=== PATIENT | female | born 1935 | race Caucasian/White ===

== ENCOUNTER 2024-01-30 21:13 | Inpatient (IN) | payer MEDICARE, BC ==
[~2024-01-30] VITALS: Ht 157.5 cm; Wt 72.1 kg
[2024-01-30] MEDS ORDERED: METO50TA16 PO (21:51)
[2024-01-30] MEDS ORDERED: LEVO125T PO (21:51)
[2024-01-30] MEDS ORDERED: ZOLP5TAB2 PO (21:51)
[2024-01-30] MEDS ORDERED: SERT100T PO (21:51)
[2024-01-30] MEDS ORDERED: ASPI81TA31 PO (21:51)
[2024-01-30] MEDS ORDERED: CARB1TAB21 PO (21:51)
[2024-01-30] MEDS ORDERED: FOLI1TAB27 PO (21:51)
[2024-01-30] MEDS ORDERED: AMLO10TA59 PO (21:51)
[2024-01-30] MEDS ORDERED: MELA3CAP2 PO (21:51)
[2024-01-30] MEDS ORDERED: CHOL100045 PO (21:51)
[2024-01-30 22:05] LABS: BASOPHILS # (AUTO) 0.1 K/UL (0.0-0.2); BASOPHILS % (AUTO) 0.7 % (0.0-2.0); EOSINOPHILS % (AUTO) 0.2 % (0.0-7.0); HEMATOCRIT 35.9 % (31.2-41.9); HEMOGLOBIN 11.8 g/dL (10.9-14.3); LYMPHOCYTES # (AUTO) 1.2 K/uL (0.8-4.8); LYMPHOCYTES % (AUTO) 8.6 % (20.5-51.5); MEAN CORPUSCULAR HEMOGLOBIN 28.6 uug (24.7-32.8); MEAN CORPUSCULAR HGB CONC 33 g/dL (32.3-35.6); MEAN CORPUSCULAR VOLUME 86.9 fL (75.5-95.3); MONOCYTES # (AUTO) 1.8 K/uL (0.1-1.30); MONOCYTES % (AUTO) 12.5 % (0.0-11.0); PLATELET COUNT (AUTO) 184 K/uL (179-408); RED BLOOD CELL COUNT(AUTO) 4.13 MIL/uL (3.63-4.92); RED CELL DISTRIBUTION WIDTH 13.6 % (12.3-17.7); WHITE BLOOD COUNT (AUTO) 14.1 K/uL (3.8-11.8)
[2024-01-30 22:06] LABS: DIFFERENTIAL COMMENT 1
[2024-01-30 22:14] LABS: CALCIUM 8.9 mg/dL (8.5-10.1); CARBON DIOXIDE 28 mmol/L (21-32); CHLORIDE 98 mmol/L (98-107); CREATININE 1.1 mg/dL (0.6-1.3); GLUCOSE 109 mg/dL (74-106); POTASSIUM 4.5 mmol/L (3.5-5.1); SODIUM SERUM 135 mmol/L (136-145); UREA NITROGEN, BLOOD 21 mg/dL (7-18)
[2024-01-30 22:27] LABS: ALANINE AMINOTRANSFERASE 11 U/L (14-59); ALBUMIN 3.6 g/dL (3.4-5.0); ALKALINE PHOSPHATASE 63 U/L (50-136); ASPARTATE AMINOTRANSFERASE 16 U/L (15-37); BILIRUBIN,DIRECT 0.2 mg/dL (0.0-0.2); BILIRUBIN,TOTAL 0.7 mg/dL (0.2-1.0); NT-PRO BNP 4254 pg/mL (0-125); TOTAL PROTEIN, SERUM 7.3 g/dL (6.4-8.2)
[2024-01-30] MEDS: levoFLOXacin 750 MG/D5W 150 ML PIGGYBACK IV ONE (23:00)
[2024-01-30] MEDS ORDERED: D5W IV ONE (23:15)
[2024-01-30] MEDS ORDERED: LEVOFLOXACIN 250 MG IV ONE (23:15)
[2024-01-31] VITALS (7 sets, daily range): BP systolic 117–157; BP diastolic 33–64; TEMP 97.4–98.4; O2SAT 90–96
[2024-01-31] MEDS ORDERED: REMEDY ESSENTIAL ZINC PASTE 113 GM TP PRN (00:15)
[2024-01-31] MEDS ORDERED: ONDANSETRON 4 MG/2 ML VIAL IV PRN (00:15)
[2024-01-31] MEDS ORDERED: ALBUTEROL SULFATE 2.5 MG/3 ML NEBU NEB PRN (00:15)
[2024-01-31] MEDS ORDERED: MAGNESIUM HYDROXIDE 30 ML LIQUID UDC PO PRN (00:15)
[2024-01-31] MEDS: ZOLPIDEM 5 MG TABLET PO PRN ×2 (02:14→23:19)
[2024-01-31] MEDS: PANTOPRAZOLE SODIUM 40 MG TABLET.DR PO SCH (06:10)
[2024-01-31 06:20] LABS: ABG BASE EXCESS -0.7 mmol/L (-2.0-3.0); ABG PH 7.362 (7.350-7.450); ABG PO2 41.9 mmHg (83.0-108.0); ABG SITE RIGHT RADIAL; ABG TOTAL HEMOGLOBIN 12.9 G/dL (12.0-16.0); AaDO2 75.4 mmHg; COHb 0.9 % (0.5-1.5); MetHb 0.1 % (0.0-1.5); O2Hb 77.6 % (94.0-98.0)
[2024-01-31 06:50] LABS: BASOPHILS # (AUTO) 0.1 K/UL (0.0-0.2); BASOPHILS % (AUTO) 0.8 % (0.0-2.0); EOSINOPHILS # (AUTO) 0.1 K/uL (0.0-0.7); EOSINOPHILS % (AUTO) 0.6 % (0.0-7.0); HEMATOCRIT 35.4 % (31.2-41.9); LYMPHOCYTES # (AUTO) 1.3 K/uL (0.8-4.8); LYMPHOCYTES % (AUTO) 10.3 % (20.5-51.5); MEAN CORPUSCULAR HEMOGLOBIN 29.8 uug (24.7-32.8); MEAN CORPUSCULAR HGB CONC 34 g/dL (32.3-35.6); MEAN CORPUSCULAR VOLUME 87.9 fL (75.5-95.3); MONOCYTES # (AUTO) 1.6 K/uL (0.1-1.30); MONOCYTES % (AUTO) 13.1 % (0.0-11.0); NEUTROPHILS # (AUTO) 9.3 K/uL (1.8-8.9); NEUTROPHILS % (AUTO) 75.2 % (38.5-71.5); PLATELET COUNT (AUTO) 187 K/uL (179-408); RED BLOOD CELL COUNT(AUTO) 4.03 MIL/uL (3.63-4.92); RED CELL DISTRIBUTION WIDTH 13.5 % (12.3-17.7); WHITE BLOOD COUNT (AUTO) 12.4 K/uL (3.8-11.8)
[2024-01-31 07:10] LABS: DIFFERENTIAL COMMENT 1
[2024-01-31 07:20] LABS: CALCIUM 8.9 mg/dL (8.5-10.1); CARBON DIOXIDE 28 mmol/L (21-32); CHLORIDE 98 mmol/L (98-107); GLUCOSE 103 mg/dL (74-106); NT-PRO BNP 3032 pg/mL (0-125); PHOSPHOROUS 3.1 mg/dL (2.5-4.9); POTASSIUM 3.9 mmol/L (3.5-5.1); SODIUM SERUM 135 mmol/L (136-145); UREA NITROGEN, BLOOD 18 mg/dL (7-18)
[2024-01-31] MEDS ORDERED: IV NORMAL SALINE 250 ML IV ONE (09:13)
[2024-01-31] MEDS ORDERED: SWABABLE VALVE TRANSFER SET EA MC ONE (09:13)
[2024-01-31] MEDS ORDERED: IOHEXOL 300MG/ML 100 ML INFUS..BTL ONE (09:13)
[2024-01-31] MEDS: ACETAzolamide 250 MG TABLET PO SCH (12:44)
[2024-01-31] MEDS: methylPREDNISolone SOD SUCC 40 MG/ML VIAL IV SCH (12:44)
[2024-01-31] MEDS: GUAIFENESIN LA 600 MG TABLET.SA PO SCH (15:52)
[2024-01-31] MEDS: ENOXAPARIN SODIUM 40 MG/0.4 ML DISP.SYRIN SQ SCH (15:53)
[2024-01-31] MEDS ORDERED: OSEL75CA PO (16:03)
[2024-01-31] MEDS: levoFLOXacin 500 MG TABLET PO SCH (18:11)
[2024-01-31] MEDS: MELATONIN 3 MG TABLET PO SCH (20:41)
[2024-02-01] VITALS (9 sets, daily range): BP systolic 102–147; BP diastolic 55–65; TEMP 97.6–98.7; O2SAT 90–96
[2024-02-01] MEDS: DILTIAZEM HCL 25 MG IV IV STA ×2 (01:53→03:29)
[2024-02-01] MEDS ORDERED: DILTIAZEM HCL IV 125 MG in IV NORMAL SALINE 100 ML IV SCH (04:45)
[2024-02-01] MEDS ORDERED: DILTIAZEM HCL 25 MG IV ONE (04:58)
[2024-02-01] MEDS: DILTIAZEM HCL IV 125 MG in IV NORMAL SALINE 100 ML IV SCH (05:21)
[2024-02-01 07:38] LABS: BASOPHILS % (AUTO) 0.2 % (0.0-2.0); HEMATOCRIT 36.2 % (31.2-41.9); HEMOGLOBIN 12.5 g/dL (10.9-14.3); LYMPHOCYTES # (AUTO) 0.9 K/uL (0.8-4.8); LYMPHOCYTES % (AUTO) 7.7 % (20.5-51.5); MEAN CORPUSCULAR HEMOGLOBIN 30.6 uug (24.7-32.8); MEAN CORPUSCULAR HGB CONC 35 g/dL (32.3-35.6); MEAN CORPUSCULAR VOLUME 88.3 fL (75.5-95.3); MONOCYTES # (AUTO) 0.3 K/uL (0.1-1.30); MONOCYTES % (AUTO) 2.9 % (0.0-11.0); NEUTROPHILS # (AUTO) 10.5 K/uL (1.8-8.9); NEUTROPHILS % (AUTO) 89.2 % (38.5-71.5); PLATELET COUNT (AUTO) 219 K/uL (179-408); RED CELL DISTRIBUTION WIDTH 13.6 % (12.3-17.7); WHITE BLOOD COUNT (AUTO) 11.8 K/uL (3.8-11.8)
[2024-02-01 07:55] LABS: CALCIUM 9.2 mg/dL (8.5-10.1); CARBON DIOXIDE 23 mmol/L (21-32); CHLORIDE 102 mmol/L (98-107); CREATININE 1.1 mg/dL (0.6-1.3); GLUCOSE 185 mg/dL (74-106); MAGNESIUM 2.2 mg/dL (1.8-2.4); PHOSPHOROUS 3.8 mg/dL (2.5-4.9); POTASSIUM 3.8 mmol/L (3.5-5.1); SODIUM SERUM 137 mmol/L (136-145); UREA NITROGEN, BLOOD 20 mg/dL (7-18)
[2024-02-01 08:04] LABS: DIFFERENTIAL COMMENT 1
[2024-02-01] MEDS: methylPREDNISolone SOD SUCC 40 MG/ML VIAL IV SCH (08:39)
[2024-02-01] MEDS: AMIODARONE HCL IV 150 MG in IV DEXTROSE 5% 100 ML IV ONE (10:01)
[2024-02-01] MEDS: CHOLECALCIFEROL 1,000 UNIT TABLET PO SCH (10:16)
[2024-02-01] MEDS: AMIODARONE HCL IV 450 MG in IV DEXTROSE 5% 250 ML IV PRN (10:23)
[2024-02-01] MEDS: CARBIDOPA/LEVODOPA 25-100MG TABLET PO SCH (10:24)
[2024-02-01] MEDS: APIXABAN 2.5 MG TABLET PO SCH (14:09)
[2024-02-01] MEDS ORDERED: levoFLOXacin 500 MG TABLET PO SCH (16:00)
[2024-02-01] MEDS: levoFLOXacin 500 MG TABLET PO SCH (18:17)
[2024-02-01] MEDS: ACETAMINOPHEN 325 MG TABLET PO PRN (19:44)
[2024-02-01] MEDS: ASPIRIN 81 MG TAB.CHEW PO SCH (20:38)
[2024-02-02] VITALS: BP 120/56; TEMP 97.6; O2SAT 96
[2024-02-02] MEDS: GUAIFENESIN/DEXTROMETHORPHAN 5 ML UDC PO PRN ×2 (00:02→15:44)
[2024-02-02 04:00] VITALS: BP 138/51; TEMP 97.7; O2SAT 96
[2024-02-02 06:59] LABS: BASOPHILS % (AUTO) 0.2 % (0.0-2.0); HEMATOCRIT 33.9 % (31.2-41.9); HEMOGLOBIN 11.4 g/dL (10.9-14.3); LYMPHOCYTES # (AUTO) 0.9 K/uL (0.8-4.8); LYMPHOCYTES % (AUTO) 5.4 % (20.5-51.5); MEAN CORPUSCULAR HEMOGLOBIN 29.8 uug (24.7-32.8); MEAN CORPUSCULAR HGB CONC 34 g/dL (32.3-35.6); MEAN CORPUSCULAR VOLUME 88.3 fL (75.5-95.3); MONOCYTES # (AUTO) 1.2 K/uL (0.1-1.30); MONOCYTES % (AUTO) 7.5 % (0.0-11.0); NEUTROPHILS # (AUTO) 13.8 K/uL (1.8-8.9); NEUTROPHILS % (AUTO) 86.9 % (38.5-71.5); PLATELET COUNT (AUTO) 242 K/uL (179-408); RED BLOOD CELL COUNT(AUTO) 3.84 MIL/uL (3.63-4.92); RED CELL DISTRIBUTION WIDTH 13.5 % (12.3-17.7); WHITE BLOOD COUNT (AUTO) 15.9 K/uL (3.8-11.8)
[2024-02-02 07:09] LABS: CALCIUM 9.4 mg/dL (8.5-10.1); CARBON DIOXIDE 23 mmol/L (21-32); CHLORIDE 105 mmol/L (98-107); CREATININE 1.1 mg/dL (0.6-1.3); GLUCOSE 143 mg/dL (74-106); MAGNESIUM 2.4 mg/dL (1.8-2.4); PHOSPHOROUS 3.5 mg/dL (2.5-4.9); POTASSIUM 3.6 mmol/L (3.5-5.1); SODIUM SERUM 140 mmol/L (136-145); UREA NITROGEN, BLOOD 23 mg/dL (7-18)
[2024-02-02 07:13] LABS: DIFFERENTIAL COMMENT 1
[2024-02-02] MEDS ORDERED: Medication Not On Formulary EA (Cholecalciferol (Vitamin D3) (Vitamin D3) 1 CAP) PO SCH (09:00)
[2024-02-02] MEDS: FOLIC ACID 1 MG TABLET PO SCH (09:17)
[2024-02-02] MEDS: LEVOTHYROXINE SODIUM 125 MCG TABLET PO SCH (09:19)
[2024-02-02 11:10] VITALS: O2SAT 97
[2024-02-02 12:00] VITALS: BP 140/57; TEMP 98.3; O2SAT 95
[2024-02-02] MEDS: BENZONATATE 100 MG CAPSULE PO SCH (13:29)
[2024-02-02 16:00] VITALS: BP 127/54; TEMP 97.6; O2SAT 94
[2024-02-02 19:35] VITALS: BP 118/70; TEMP 97.8; O2SAT 94
[2024-02-03] VITALS (7 sets, daily range): BP systolic 116–139; BP diastolic 41–77; TEMP 97.9–98; O2SAT 92–99
[2024-02-03 07:08] LABS: BASOPHILS % (AUTO) 0.2 % (0.0-2.0); HEMATOCRIT 35.1 % (31.2-41.9); HEMOGLOBIN 11.9 g/dL (10.9-14.3); LYMPHOCYTES # (AUTO) 0.8 K/uL (0.8-4.8); LYMPHOCYTES % (AUTO) 5.4 % (20.5-51.5); MEAN CORPUSCULAR HEMOGLOBIN 29.7 uug (24.7-32.8); MEAN CORPUSCULAR HGB CONC 34 g/dL (32.3-35.6); MEAN CORPUSCULAR VOLUME 87.2 fL (75.5-95.3); MONOCYTES # (AUTO) 1.3 K/uL (0.1-1.30); MONOCYTES % (AUTO) 8.4 % (0.0-11.0); PLATELET COUNT (AUTO) 258 K/uL (179-408); RED BLOOD CELL COUNT(AUTO) 4.03 MIL/uL (3.63-4.92); RED CELL DISTRIBUTION WIDTH 13.9 % (12.3-17.7); WHITE BLOOD COUNT (AUTO) 15.1 K/uL (3.8-11.8)
[2024-02-03 07:33] LABS: CALCIUM 9.4 mg/dL (8.5-10.1); CARBON DIOXIDE 24 mmol/L (21-32); CHLORIDE 107 mmol/L (98-107); CREATININE 1.1 mg/dL (0.6-1.3); GLUCOSE 124 mg/dL (74-106); MAGNESIUM 2.5 mg/dL (1.8-2.4); PHOSPHOROUS 3.3 mg/dL (2.5-4.9); POTASSIUM 3.8 mmol/L (3.5-5.1); SODIUM SERUM 140 mmol/L (136-145); UREA NITROGEN, BLOOD 30 mg/dL (7-18)
[2024-02-03 07:37] LABS: DIFFERENTIAL COMMENT 1
[2024-02-03 10:06] LABS: ADENOVIRUS Not Detected (Not Detected); CORONAVIRUS 229E Not Detected (Not Detected); CORONAVIRUS HKU1 Not Detected (Not Detected); CORONAVIRUS NL63 Not Detected (Not Detected); CORONAVIRUS OC43 Detected (Not Detected); NP BORDETELLA PERTUSIS Not Detected (Not Detected); NP CHLAMYDOPHILA PNEUMONIAE Not Detected (Not Detected); NP HUMAN METAPNEUMOVIRUS Not Detected (Not Detected); NP HUMAN RHINO/ENTERO VIRUS Not Detected (Not Detected); NP INFLUENZA A Not Detected (Not Detected); NP INFLUENZA A/H1 Not Detected (Not Detected); NP INFLUENZA A/H1-2009 Not Detected (Not Detected); NP INFLUENZA A/H3 Not Detected (Not Detected); NP INFLUENZA B Not Detected (Not Detected); NP MYCOPLASMA PNEUMONIAE Not Detected (Not Detected); NP PARAINFLUENZA 1 Not Detected (Not Detected); NP PARAINFLUENZA 2 Not Detected (Not Detected); NP PARAINFLUENZA 3 Not Detected (Not Detected); NP PARAINFLUENZA 4 Not Detected (Not Detected); NP RESPIRATORY SYNCYTIAL VIRUS Not Detected (Not Detected)
[2024-02-03] MEDS: methylPREDNISolone SOD SUCC 40 MG/ML VIAL IV SCH (11:04)
[2024-02-03] MEDS: ALPRAZOLAM 0.25 MG TABLET PO ONE (18:58)
[2024-02-03] MEDS: ALBUTEROL SULFATE 1.25 MG/3 ML NEBU NEB PRN (23:19)
[2024-02-04 06:42] VITALS: BP 143/68; TEMP 97.6; O2SAT 97
[2024-02-04] MEDS ORDERED: predniSONE 20 MG TABLET PO ONE (10:45)
[2024-02-04 11:35] VITALS: BP 140/70; TEMP 97.9; O2SAT 96
[2024-02-04] MEDS ORDERED: levoFLOXacin 500 MG TABLET PO ONE (15:00)
== END 2024-02-04 12:11 | DRG 189 ==
LOC: ER 21:19 → TELE3 23:00 → TELE-TD3 02-01 04:45 → MEDSURG3 02-02 11:02
PROVIDERS: ADMIT Nurse Practitioner Family; ATTEND Nurse Practitioner Family
DX: J96.01 Acute respiratory failure with hypoxia (principal); E87.1 Hypo-osmolality and hyponatremia; J96.02 Acute respiratory failure with hypercapnia; J06.9 Acute upper respiratory infection, unspecified; J45.909 Unspecified asthma, uncomplicated; I48.0 Paroxysmal atrial fibrillation; Z66 Do not resuscitate; B97.29 Other coronavirus as the cause of diseases classified elsewhere; K21.9 Gastro-esophageal reflux disease without esophagitis; Z90.13 Acquired absence of bilateral breasts and nipples; Z85.3 Personal history of malignant neoplasm of breast; Z96.653 Presence of artificial knee joint, bilateral; Z79.899 Other long term (current) drug therapy; Z79.890 Hormone replacement therapy; Z79.82 Long term (current) use of aspirin; G20.A1 Parkinson's disease without dyskinesia, without mention of fluctuations; M15.9 Polyosteoarthritis, unspecified; Z87.891 Personal history of nicotine dependence; Z80.3 Family history of malignant neoplasm of breast; I35.8 Other nonrheumatic aortic valve disorders; E03.9 Hypothyroidism, unspecified; I10 Essential (primary) hypertension; R79.89 Other specified abnormal findings of blood chemistry; Z92.3 Personal history of irradiation; F10.21 Alcohol dependence, in remission
CPT/HCPCS: 36415; 36600; 71045; 82785; 82803; 83735; 84100; 84484; 85025; 87040; 93005; 93307; 94664; A4606; A4663; G0378; J0282; J1650; J1956; J2919; J3490; J7050; J8499; Q9967